=== PATIENT | male | born 2000 | race African-American/Black ===

== ENCOUNTER 2024-07-23 12:49 | Emergency (ER) | payer MEDICAID ==
[~2024-07-23] VITALS: Ht 172.7 cm; Wt 83.0 kg
[2024-07-23 12:58] VITALS: O2SAT 100
[2024-07-23] MEDS ORDERED: ACYC200C31 MT (16:12)
[2024-07-23 16:25] VITALS: BP 124/76; PULSE 85; RESP 12; TEMP 36.7; O2SAT 100
== END 2024-07-23 16:27 | disposition home or self-care (01) ==
LOC: ER 12:49
DX: B00.1 Herpesviral vesicular dermatitis (principal); Z79.899 Other long term (current) drug therapy
CPT/HCPCS: 99283; Z7610; A4606